=== PATIENT | male | born 1970 | race Caucasian/White ===

== ENCOUNTER 2021-04-22 16:07 | Emergency (ER) | payer SELFPAY ==
[2021-04-22 17:48] LABS: #Basophils 0.1 10x3/uL (0.0-0.2); #Eosinphils 0.1 10x3/uL (0.0-0.5); #Monocytes 0.8 10x3/uL (0.0-1.1); #Neutrophils 4.2 10x3/uL (1.5-8.4); %Basophils 0.8 % (0.0-2.0); %Eosinophils 0.7 % (0.0-6.0); %Lymphocytes 28.6 % (18.0-47.0); %Neutrophils 58.3 % (40.0-75.0); Hemoglobin 15.5 g/dL (13.5-17.5); Mean Corpuscular Hemoglobin 31.3 pg (27.0-33.0); Mean Corpuscular Volume 92.1 fl (81.2-95.1); Platelet Count 146 10x3/uL (150-450); RBC Distribution Width 13.5 % (11.5-14.5); Red Blood Cell (RBC) Count 4.95 10x6/uL (4.32-5.72); White Blood Cell (WBC) Count 7.2 10x3/uL (3.5-10.5)
[2021-04-22 17:57] LABS: ALT (SGPT) 149 U/L (8-55); AST (SGOT) 101 U/L (5-34); Albumin 4.2 g/dL (3.5-5.0); Alkaline Phosphatase 102 U/L (40-110); Anion Gap 13 mmol/L (10-20); BUN (Urea Nitrogen) 11 mg/dL (8.9-20.6); Bilirubin, Total 0.9 mg/dL (0.2-1.2); Calc. Creatinine Clearance 0 mL/min (70-130); Calcium 8.9 mg/dL (7.8-10.44); Carbon Dioxide 22 mmol/L (22-29); Chloride 107 mmol/L (98-107); Globulin 3.1 g/dL (2.4-3.5); Glucose 129 mg/dL (70-105); Protein, Total 7.3 g/dL (6.0-8.3); Sodium 138 mmol/L (136-145)
[2021-04-22 19:19] LABS: Troponin I 0.024 ng/mL (< 0.028)
[2021-04-23 20:37] LABS: SARS-CoV-2 PCR by NAA Not Detected (NotDetected)
== END 2021-04-22 20:07 | disposition home or self-care (01) ==
LOC: CSHERS 16:07
DX: B34.9 Viral infection, unspecified (principal); R07.9 Chest pain, unspecified; Z20.822 Contact with and (suspected) exposure to COVID-19
CPT/HCPCS: 36415; 71045; 80053; 84484; 85025; 87804; 93005; U0003; U0005

== ENCOUNTER 2023-10-11 12:23 | Emergency (ER) | payer SELFPAY | END 2023-10-11 14:50 | disposition home or self-care (01) | LOC: CSHERS 12:23 | DX: K62.5 Hemorrhage of anus and rectum (principal) | CPT/HCPCS: 80053; 82274; 85025; 99283 ==

== ENCOUNTER 2023-10-16 12:38 | Observation (INO) | payer SELFPAY ==
[2023-10-17 00:21] VITALS: BMI 19.0
[2023-10-17 12:20] VITALS: BP 105/57; TEMP 97.5
== END 2023-10-17 16:45 | disposition home or self-care (01) ==
LOC: CSHERS 12:38 → CSHERHOLD 18:25 → CSHTELE 20:43
PROVIDERS: ADMIT Surgery; ATTEND Surgery
PROC: 0D9Q3ZZ Drainage of Anus, Percutaneous Approach (ICD-10-PCS; principal; 2023-10-17)
DX: K61.1 Rectal abscess (principal); F41.9 Anxiety disorder, unspecified; E78.00 Pure hypercholesterolemia, unspecified; Z79.899 Other long term (current) drug therapy
CPT/HCPCS: 36415; 74177; 80053; 83605; 85025; 87040; 96361; 96365; 96367; 96375; 96376; J0665; J0692; J1100; J1885; J2001; J2270; J2405; J2543; J2704; J3010; J3370; J3490; J7030; J7120; S0028

== ENCOUNTER 2024-03-22 11:50 | Emergency (ER) | payer SELFPAY ==
[2024-03-22 12:25] LABS: Bilirubin Neg (Negative); Blood, Urine 10 (Negative); Clarity Clear (Clear); Glucose, Urine (Dipstick) Normal (Negative); Ketone, Urine Negative (Negative); Leukocyte Negative (Negative); Nitrite Negative (Negative); Protein, Urine (Dipstick) 30 mg/dl (Neg-Trace); Specific Gravity, Urine 1.025 (1.005-1.030); Urobilinogen Normal mg/dL (Less than 2)
[2024-03-22 12:37] LABS: #Basophils 0.07 10x3/uL (0.0-0.2); #Eosinophils 0.11 10x3/uL (0.0-0.5); #Monocytes 0.81 10x3/uL (0.0-1.1); #Neutrophils 4.63 10x3/uL (1.5-8.4); %Basophils 0.8 % (0.0-2.0); %Eosinophils 1.2 % (0.0-6.0); %Lymphocytes 36.8 % (18.0-47.0); %Neutrophils 51.6 % (40.0-75.0); ALT (SGPT) 63 U/L (8-55); AST (SGOT) 45 U/L (5-34); Albumin 3.8 g/dL (3.5-5.0); Alkaline Phosphatase 137 U/L (40-110); Anion Gap 15 mmol/L (10-20); BUN (Urea Nitrogen) 14 mg/dL (8.4-25.7); Bilirubin, Total 0.6 mg/dL (0.2-1.2); Calc. Creatinine Clearance 0 mL/min (70-130); Calcium 9.5 mg/dL (7.8-10.44); Carbon Dioxide 18 mmol/L (22-29); Chloride 110 mmol/L (98-107); Estimated GFR 104; Globulin 3.6 g/dL (2.4-3.5); Glucose 149 mg/dL (70-105); Hematocrit 43.3 % (38.8-50.0); Hemoglobin 15.2 g/dL (13.5-17.5); Lipase 44 U/L (8-78); Mean Corpuscular HGB CONC 35.1 g/dL (32.0-36.0); Mean Corpuscular Hemoglobin 30.5 pg (27.0-33.0); Mean Corpuscular Volume 86.8 fL (81.2-95.1); Mean Platelet Volume 13.5 fL (7.4-10.4); Platelet Count 173 10x3/uL (150-450); Potassium 3.8 mmol/L (3.5-5.1); Protein, Total 7.4 g/dL (6.0-8.3); RBC Distribution Width 13.2 % (11.5-14.5); Red Blood Cell (RBC) Count 4.99 10x6/uL (4.32-5.72); Sodium 139 mmol/L (136-145)
[2024-03-22 12:54] LABS: Bacteria/HPF Rare-Few HPF (None Seen); CAUTI Indications for Culture Pelvic or flank pain; RBC/HPF 0-3 HPF (0-3); Squamous Epithelial 21-50 HPF (0-3); WBC/HPF 0-3 HPF (0-3)
[2024-03-22 12:55] LABS: Urine Culture Reflex No No
[2024-03-22] MEDS ORDERED: HYDROcodone/Acetaminophen 5/325 mg Tablet ONE (13:10)
[2024-03-22] MEDS ORDERED: Ondansetron ODT 4 MG TAB ONE (13:11)
[2024-03-22] MEDS ORDERED: Ketorolac Tromethamine 30 MG (1 mL) VIAL ONE (13:11)
[2024-03-22 14:31] LABS: Troponin I Less than 0.010 ng/mL (< 0.028)
[2024-03-22] MEDS ORDERED: Morphine 4 MG/ML VIAL ONE (15:12)
== END 2024-03-22 16:44 | disposition home or self-care (01) ==
LOC: CSHERS 11:50
DX: K76.0 Fatty (change of) liver, not elsewhere classified (principal); R10.11 Right upper quadrant pain
CPT/HCPCS: 36415; 71045; 74176; 76705; 80053; 81001; 83690; 84484; 85025; 93005; 96374; 96375; J1885; J2272; Q0162